=== PATIENT | female | born 1980 ===

== ENCOUNTER 2023-07-25 09:16 | Outpatient (CLI) | payer OTHER, SELFPAY | END 2023-07-25 09:17 | disposition home or self-care (01) | LOC: NFLDREF 08-01 02:45 | PROVIDERS: PCP Physician Assistant Medical; Referring Provider Physician Assistant Medical; Visit Provider Physician Assistant Medical | DX: R30.0 Dysuria (principal); N39.0 Urinary tract infection, site not specified; N30.00 Acute cystitis without hematuria | CPT/HCPCS: 87086 ==

== ENCOUNTER 2024-01-07 14:13 | Outpatient (CLI) | payer OTHER, SELFPAY ==
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
--- OUTSIDE RECORDS SUMMARY | 2024-01-10 11:18 | XMS_ITS | Clinical Summary ---
Author Name Unknown Organization [email or web address] Address [place], [place] [address] Care Team Providers Care Guitar Technician Name Role Phone [facility] Primary Care Provider [phone] Allergies Active Allergy Reactions Criticality Noted Date Comments Latex *Unknown 12/12/2010 PN: Converted from Latex Sensitivity Flag Nickel Itching Medium 12/17/2017 Tree And Shrub Pollen Other - Describe In Comment Field,Runny Nose 11/14/2020 Tree Pollen-Red Maple Other - Describe In Comment Field,Runny Nose 11/14/2020 Medications Medication Sig Dispensed Refills Start Date End Date Status MEDICATION ORDER COMPOSER anti-inflammatory two tabs by mouth daily 0 Active cetirizine (ZYRTEC) 10 mg tablet Take 10 mg by mouth. Acti ve cholecalciferol (VITAMIN D3) 1,000 unit tablet Take 5,000 units by mouth. Active TURMERIC ORAL Take 2 Tablets by mouth once daily. Active escitalopram oxalate (LEXAPRO) 10 mg tablet Active escitalopram oxalate (LEXAPRO) 20 mg tablet 08/07/2021 Active Magnesium Oxide 500 mg tab Take 500 mg by mouth. Active mupirocin (BACTROBAN OINTMENT) ointment 04/22/2021 Active propranolol ER (INDERAL LA) 60 mg Cs24 Sustained-Release capsule 06/28/2021 Active pyridoxine, vitamin B6, (VITAMIN B6) 100 mg tablet Take 200 mg by mouth. Active HYDROcodone-acetam inophen (NORCO) 5-325 mg per tabletIndications: Cellulitis, face Take 1 Tablet by mouth every 6 hours if needed for Pain. Max acetaminophen dose: 4000 mg in 24 hrs. 5 Tablet 09/21/2021 Active ibuprofen (ADVIL; MOTRIN) 200 mg cap Take by mouth. Ac tive metFORMIN (GLUCOPHAGE XR) 500 mg Extended-Release tablet 04/05/2022 Active naproxen sodium 220 mg cap as needed Active hydrOXYzine HCL (ATARAX) 25 mg tabletIndications: Migraine without status migrainosus, not intractable, unspecified migraine type Take 1 Tablet (25 mg) by mouth every 6 hours if needed (for feeling irritable). 25 Tablet 04/15/2022 Active LORazepam (ATIVAN) 0.5 mg tabIndications:Ron markie without status migrainosus, not intractable, unspecified migraine type Take 1 tablet by mouth twice daily as needed for nerve relaxing careful of sedation 5 Tablet 04/15/2022 Active topiramate (TOPAMAX) 25 mg tablet Take 50 mg by mouth two times daily. 02/18/2023 Active Family History Medical History Relation Name Comments Hypertension Father Relation Name Status Comments Father Alive Mother Alive Social History Tobacco Use Types Packs/Day Years Used Date Smoking Tobacco: Never Smokeless Tobacco: Never Alcohol Use Standard Drinks/Week Comments Yes 2 (1 standard drink = 0.6 oz pur e alcohol) social Social Connections Answer Date Recorded Frequency of Communication with Friends and Fami ly Not on file 02/08/2023 Sex and Gender Information Value Date Recorded Sex Assigned at Not on file Gender Identity Not on file Sexual Orientation Not on file Obstetrics History Para Term AB IAB SAB Ectopic Multiple Livin g Live Births 1 Date Outcome GA Total Labor Labor/2nd/3rd Weight Sex Delivery Anes PTL Judy A1 A5 Name Cl in Last Filed Vital Signs Vital Sign Reading Time Taken Comments Blood Pressure 102/60 02/08/2023 10:56 AM CDT Pulse 71 02/08/2023 10:56 AM CDT Temperature 36.9 ??C (98.5 ??F) 04/15/2022 12:36 PM C DT Respiratory Rate 16 02/08/2023 10:56 AM CDT Oxygen Saturation 99% 02/08/2023 10:56 AM CDT Inhaled Oxygen Concentration - - Weight 86.2 kg (190 lb) 02/08/2023 10:56 AM CDT Height 172.7 cm (5' 8) 02/08/2023 10:56 AM CDT Body Mass Index 28.89 02/08/2023 10:56 AM CDT Plan of Treatment Health Maintenance Due Date Last Done Comments Tdap 1991 Depression screening for age 12+ 1992 HIV for age 15-65 1995 Hepatitis C screening for ag e 18-79 1998 Tetanus booster 2000 Pap test for age 21-65 2001 COVID-19 vaccine series ( season) 2023 BMI (ht and wt on same day) for age 18+ 02/09/2024 02/08/2023, 09/21/2021 Influenza for age 9-49 05/10/2024 Pneumococcal series for age 6-64 Aged Out No longer eligible b ased on patient's age to complete this topic Care Teams Guitar Technician Relationship Specialty Start Date End Date [address] [place] [address] PCP - General 04/15/22
--- OUTSIDE RECORDS SUMMARY | 2024-01-10 11:18 | XMS_ITS | Clinical Summary ---
Author Name Unknown Organization [employer] Address [address] [place] [address] Care Team Providers Care Tailor Women'S Garment Alteration Name Role Phone Pediatrics, [facility] Primary Care Provider [phone] Allergies Active Allergy Reactions Criticality Noted Date [...] Name Administration Dates Next Due Td,adult,historic,unspecified 05/30/1998 Family History Medical History Relation Comments Diabetes Father Hypertension Father Cancer Maternal Grandfather lung cancer Diabetes Maternal Uncle No Known Problems Mother Hypertension Paternal Grandfather Hypertension Paternal Grandmother Relation Status Comments Father Alive Maternal Grandfather Maternal Uncle Mother Alive Paternal Grandfather Paternal Grandmother Social History Tobacco Use Types Packs/Day Years [...] Comments Blood Pressure 130/75 07/18/2022 9:25 PM ACCOUNT UNDERWRITER Pulse 66 07/18/2022 9:25 PM ACCOUNT UNDERWRITER Temperature 36.5 ??C (97.7 ??F) 07/18/2022 4:46 PM CS T Respiratory Rate 16 07/18/2022 9:25 PM ACCOUNT UNDERWRITER Oxygen Saturation 99% 07/18/2022 9:25 PM ACCOUNT UNDERWRITER Inhaled Oxygen Concentration - - Weight 88.5 kg (195 lb) 07/18/2022 4:46 PM ACCOUNT UNDERWRITER Height 172.7 cm (5' 8) 07/18/2022 4:46 PM ACCOUNT UNDERWRITER Body Mass Index 29.65 07/18/2022 4:46 PM ACCOUNT UNDERWRITER Plan of Treatment Health Maintenance Due Date Last Done Comments ADVANCE CARE PLANNING 1980 ANNUAL REVIEW OF HM ORDERS 1980 DEPRESSION ACTION PLAN 1980 MAMMO SCREENING 1980 PHQ-9 1980 HIV SCREENING 1995 HEPATITIS C SCREENING 1998 DTAP/TDAP/TD IMMUNIZATION (2 - Tdap) 05/31/1998 05/30/1998, 05/30/1998 HEPATITIS B IMMUNIZATION (1 of 3 - 19+ 3-dose series) 1999 YEARLY PREVENTIVE VISIT 07/30/2018 07/30/20 17, 07/30/2017, 03/26/2016, Additional history exists HPV TEST 03/26/2021 03/26/2016, 03/26/2016 LIPID 03/26/2021 03/26/2016, 07/02/2014 PAP 03/26/2021 03/26/2016 COVID-19 Vaccine (1 - 2023-24 season) 2023 INFLUENZA VACCINE (#1) 2023 GLUCOSE 07/18/2025 07/18/2022, 12/08, 12/07/2018, Additional history exists HPV IMMUNIZATION Aged Out No longer e ligible based on patient's age to complete this topic IPV IMMUNIZATION Aged Out No longer e ligible based on patient's age to complete this topic MENINGITIS IMMUNIZATION Aged Out No l onger eligible based on patient's age to complete this topic Pneumococcal Vaccine: Pediatrics (0 to 5 Years) and At-Risk Patients (6 to 64 Years) Aged Out No longer eligible based on patient's age to complete this topic RSV MONOCLONAL ANTIBODY Aged Out No l onger eligible based on patient's age to complete this topic Procedures Procedure Name Priority Date/Time Associated Diagnosis Comments BASIC METABOLIC PANEL STAT 07/18/2022 5:27 PM ACCOUNT UNDERWRITER GYNECOLOGIC CYTOLOGY Routine 03/26/2016 9:38 AM CDT HPV HIGH RISK TYPES DNA CERVICAL Routine 03/26/2016 9:38 AM CDT LIPID PROFILE Routine 03/26/2016 9:37 AM CDT from Last 3 Months or Most Recently Relevant to Health Maintenance Results * Basic metabolic panel (07/18/2022 5:27 PM ACCOUNT UNDERWRITER) Sodium 138 136 - 145 mmol/L 07/18/2022 5:55 PM [facility] Potassium 4.4 3.5 - 5.0 mmol/L 07/18/2022 5:55 PM [facility] Chloride 105 98 - 107 mmol/L 07/18/2022 5:55 PM [facility] Carbon Dioxide (CO2) 23 22 - 31 mmol/L 07/18/2022 5:55 PM [facility] Anion Gap 10 5 - 18 mmol/L 07/18/2022 5:55 PM [facility] Urea Nitrogen 12 8 - 22 mg/dL 07/18/2022 5:55 PM [facility] Creatinine 0.74 0.60 - 1.10 mg/dL 07/18/2022 5:55 PM [facility] Calcium 9.2 8.5 - 10.5 mg/dL 07/18/2022 5:55 PM [facility] Glucose 102 70 - 125 mg/dL 07/18/2022 5:55 PM [facility] GFR Estimate >90 >60 mL/min/1.7 3m2 07/18/2022 5:55 PM [facility] Comment:Effective August 102020 eGFRcr in adults is calculated using the 2020 CKD-EPI creatinine equation which includes age and gender (Josh et al., NEJM, DOI: 10.1056/BCVIwf4802216) Blood STRUCTURE OF LEFT UPPER LIMB / Unknown Venipuncture / Unknown 07/18/2022 5:27 PM ACCOUNT UNDERWRITER 07/18/2022 5:30 PM [facility] Markie Raphael MD LAB - BLOOD ORDERABL ES Performing Organization Address City/State/[facility] Co de Phone Number [facility] [address] [facility] [address] [phone] * Gynecologic Cytology (PAP Smear) (03/26/2016 9:38 AM CDT) Case Report Gynecologic Cytology Report ? Case: [id number] ? Authorizing Provider: ??Gisela Bourne CNP ? Collected: ? 03/26/2016937 ? Ordering Location: ? [facility] Medicine/OB Received: ?03/26/2016937 ? First Screen: ?Jackie Jacobs, [place] ? (ASCP) ? Rescreen: ?SHAWN Guido ? [...] CDT 03/27/2016 9:23 AM CDT Gisela Bourne BINDING CEMENTER [employer] TERRITORY SALES EXECUTIVE RODRIGO CULP AP * HPV High Risk Types DNA Cervical (03/26/2016 9:38 AM CDT) Interpretation No HPV Type(s) Detected No HPV Type(s) Detected, No High Risk HPV Type(s) Detected, DNA Quantity Not Sufficient 03/29/2016 1:10 PM CDT Sales And Marketing Director Jarad Nash MD, [facility] 03/29/2016 1:10 PM CDT Comment: Testing was performed at [facility], [address] [place] [address], with final verification at the indicated laboratory. ??Interpretation was performed at [facility] [address] [place] [address]. Specimen of unknown material (specimen) 03/26/2016 9:38 [...] this laboratory-developed test (LDT) were determined by [facility] pursuant to Clinical Laboratory Improvement Amendments (CLIA 88) requirements. ??It has not been cleared or approved by the U.S. Food and Drug Administration (FDA). ??The FDA has determined that such clearance or approval is not a requirement prior to use for clinical purposes. Gisela Bourne APRN TERRITORY SALES EXECUTIVE LAB - BLOOD ORDER DOT * Lipid [...] AM CDT 03/26/2016 5:38 PM CDT Gisela Sandhya Bourne BINDING CEMENTER [employer] TERRITORY SALES EXECUTIVE LAB - BLOOD ORDER DOT from Last 3 Months or Most Recently Relevant to Health Maintenance Care Teams Tailor Women'S Garment Alteration Relationship Specialty Start Date End Date Pediatrics, [facility] [address] [place] [address] [place] [address] PCP - General 07/18/22
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
--- OUTSIDE RECORDS SUMMARY | 2024-01-10 11:19 | XMS_ITS | Encounter Summary ---
Author Name Unknown Organization [facility] Address [address] [address] Care Team Providers Care Director Of Nurses Registry Name Role Phone Gisela Bourne APRN, CNP Primary Care Provider + Encounter Details Date Type Department Care Team (Late st Contact Info) Description 12/17/2017 Consent for Procedure/Treatme nt [facility] INFORMED CONSENT RECORD Social History Tobacco Use Types Packs/Day Years Used Date Smoking Tobacco: Never Smokeless Tobacco: Never Alcohol Use Standard Drinks/Week Comments No 0 (1 standard drink = 0.6 oz pur e alcohol) Sex and Gender Information Value Date Recorded Sex Assigned at Not on file Gender Identity Not on file Sexual Orientation Not on file documented as of this encounter Plan of Treatment Not on file documented as of this encounter Visit Diagnoses Not on filedocumented in this encounter Care Teams Director Of Nurses Registry Relationship Specialty Start Date End Date Gisela Bourne APRN, CNP [address] [facility] [address] [place] [address] PCP - General Nurse Practitioner 12/25/17 documented as of this encounter
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
--- OUTSIDE RECORDS SUMMARY | 2024-01-10 11:19 | XMS_ITS | Continuity of Care Document ---
Author Name Unknown Organization [facility] enter Address [address] [place] [phone] Phone Care Team Providers Care Sales Operations Coordinator Name Role Phone [facility] Unavailable Unava ilable Procedures Procedure Date N BLOCK, OTHER PERIPHERAL N BLOCK, OTHER PERIPHERAL Advance Directives Directive Yes / No Effective Date File Name No Information Encounters Encounter Description Practice Location Reason(s) For Visit Diagnoses Date Provider Providers Copied on Encounter [facility], [address] [place] [address], [id number], [place] tel:[phone] [facility] No Information [facility]. [address] [place] [address], [id number], . tel:[phone] Referring Provider: Davy Mcdonald, [address] [place], [address] . tel:[phone] Family History Family Member Type Diagnosis Age At Onset No Information Payers Payer name Insurance type Covered alliance party ID Ashok huertas(s) Leyda CI [id number] Social History Type Description Quantity Date Captured Comments Sex Female Smoking Status No Information Chief Complaint And Reason For Visit No Information Reason For Referral Reason For Referral No Information History Of Present Illness Encounter Date Complaint History Of Prese nt Illness No Information Functional Status Date Functional Assessmen t No Information Instructions Date Instruction Additional Infor mation No Information Assessments Type Assessment Date No Information Patient Care Teams Name Effective Dates (start - stop) Status Members No Information
--- OUTSIDE RECORDS SUMMARY | 2024-01-10 11:19 | XMS_ITS | Patient Health Record ---
Author Name Unknown Organization [facility] Address [address] [place] [address] [place] [address] Support Name Relationship Address Phone DEVEN JAMES Guarantor Unknown Allergies Allergen (clinical drug ingredient) Drug/Non Drug Allergy documented on EMR Reaction Allergy Type Onset Date Status seasonal (uncoded) Unknown Allergy A ctive Reason For Referral No Information Medications Medication SIG (Take, Route, Frequency, Duration) Notes Start Date End Date Status Escitalopram Oxalate 20 MG 1 tablet Orally Once a day for 90 day(s) Active Escitalopram Oxalate 10 MG 1 tablet Orally Once a day for 90 day(s) Active Magnesium Active CBD [place] oil Active Triamcinolone Acetonide 0.1 % 1 application Externally Twice a day for 14 days 06/20/2020 Not-Taking Mupirocin 2 % 1 application Externally Three times a day for 5 day(s) Active Probiotic Active predniSONE 5 MG (21) as directed Orally for shou lder pain Not-Taking HYDROcodone-Acetamino phen for jaw pain Not-Taking Escitalopram Oxalate 20 MG TAKE 1 TABLET BY MOUTH EVERY DAY FOR 30 DAYS for 30 20 with the 10 Active Gabapentin Not-Takin g ZyrTEC 10mg PRN Active Vitamin D 5,000 IU Active Vitamin B12 Active Problems Problem Type SNOMED Code ICD Code Onset Dates Problem Status W/U Status Risk Notes Problem Anxiety (00254363) Anxiety (F41.9) Active confi rmed Problem Depressive disorder (disorder) (69587556) Depression, unspecified depression type (F32.9) Active confirmed Problem Vesicular eczema of hands and/or feet (292869476) 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) Active confirmed Problem Mixed anxiety and depressive disorder (761660206) Depression with anxiety (F41.8) Active confirmed Problem 2316529641665839 Disorder of bot h eustachian tubes (H69.93) Active confirmed Problem 99064106 Sinusitis, unspecified chronicity, unspecified location (J32.9) Active confirmed Problem 57039918 Temporomandibula r disorder (M26.609) Active confirmed Plan Of Treatment Pending Test Test Name Order Date PHQ-9 and/or LILIANA 04/22/2021 Future Test Test Name Order Date Genomind 12/13/2021 Insurance Providers Payer Name Payer Address Payer Phone Subscriber Number Group Number Insured Name Patient Relationship to Insured Coverage Start Date Coverage End Date [employer] [place] [employer] [address] [place] [phone] [id number] DEVEN BOOTHE Self - patient is the insured Medical (General) History Medical History History ICD Code Depression and anxiety PCOS
--- OUTSIDE RECORDS SUMMARY | 2024-01-10 11:19 | XMS_ITS | Encounter Summary ---
Author Name Unknown Organization [facility] Address [address] [facility] [place] [address] Care Team Providers Care Satellite Television Installer Name Role Phone No Ref-Primary, Physician Primary Care Provider Pediatrics, [facility] Primary Care Provider [phone] Encounter Details Date Type Department Care Team (Late st Contact Info) Description 12/20/2020 Documentation Only [facility] Emergency Dept [address] [place] [phone] Unknown, Provider Social History Tobacco Use Types Packs/Day Years Used Date Smoking Tobacco: Never Assessed Sex and Gender Information Value Date Recorded Sex Assigned at Not on file Gender Identity Not on file Sexual Orientation Not on file COVID-19 Exposure Response Date Recorded In the last month, have you been in contact with someone who was confirmed or suspected to have Coronavirus / COVID-19? Yes 12/19/2020 9:27 PM CDT documented as of this encounter Plan of Treatment Not on file documented as of this encounter Visit Diagnoses Not on filedocumented in this encounter Care Teams Satellite Television Installer Relationship Specialty Start Date End Date No Ref-Primary, Physician PCP - General 12/19/20 07/17/22 Pediatrics, [address] [id number] PCP - General 07/18/22 documented as of this encounter
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
--- OUTSIDE RECORDS SUMMARY | 2024-01-10 11:19 | XMS_ITS | Encounter Summary ---
Author Name Unknown Organization [facility] Address [address] [place] [address] Care Team Providers Care Lactation Specialist Name Role Phone No Ref-Primary, Physician Primary Care Provider Gisela Bourne APRN [facility] Primary Care Provider [phone] No Ref-Primary, Physician Primary Care Provider Gisela Bourne APRN [facility] Primary Care Provider [phone] [facility], [facility] Primary Care Provider [phone] Reason for Referral * - Closed Specialty Diagnoses / Procedures Referred By Claudia jasso Referred To Contact Diagnoses related condition, antepartum Karlene Shi CNM [address] [place] [address] Referral ID Status Reason Start Date Expiration Date Visits Re quested Visits Authorized [id number] Closed 06/19/2018 06/19/2019 1 1 Comments Abnormal Genetic Testing, high risk, Triploidy, Trisomy 18 or Trisomy 13 * - Closed Specialty Diagnoses / Procedures Referred By Claudia jasso Referred To Contact Diagnoses related condition, antepartum Karlene Shi CNM [address] [place] [address] Referral ID Status Reason Start Date Expiration Date Visits Re quested Visits Authorized [id number] Closed 06/19/2018 06/19/2019 1 1 Question Answer MFM Location [facility] 12/16/2018 Ultrasound Complete US (14-17.6 weeks GA) US PROC NONE MFM Issue Abnormal Genetic Screening(details in Comments)*MUST request Genetic Counseling - Abnormal Genetic Testing, high risk, Triploidy, Trisomy 18 or Trisomy 13 MFM Consultation (unrelated to Ultrasound findings) No Genetic Counseling Consultation: Yes - Abnormal Genetic Testing, high risk, Triploidy, Trisomy 18 or Trisomy 13 fax Karlene Shi, [facility], Comments There is no height or weight on file to calculate BMI. >> Patient may proceed with recommendations for further testing as directed by the Maternal Medicine Specialist >> >> If requesting Echo: MFM will determine appropriate location for exam due to indication. >> If requesting Lung Maturity Amnio: If results indicate lung maturity, induction or C/S is recommended within 36 hours. Please schedule accordingly. Dear Patient: Please be aware that coverage of these services is subject to the terms and limitations of your health insurance plan. Call member services at your health plan with any benefit or coverage questions. Please bring the following to your appointment: >> Any x-rays, CTs or MRIs which have been performed. Contact the facility where they were done to arrange for picker operator prior to your scheduled appointment. Any new CT, MRI or other procedures ordered by your specialist must be performed at a [facility] facility or coordinated by your clinic's referral office. >> List of current medications >> This referral request >> Any documents/labs given to you for this referral Encounter Details Date Type Department Care Team (Late st Contact Info) Description 06/19/2018 Orders Only [facility] [address] [address] Karlene Shi CNM [address] [place] [address] related condition, antepartum (Primary Dx) Social History Tobacco Use Types Packs/Day Years Used Date Smoking Tobacco: Never Assessed Sex and Gender Information Value Date Recorded Sex Assigned at Not on file Gender Identity Not on file Sexual Orientation Not on file documented as of this encounter Plan of Treatment Scheduled Referrals Name Type Priority Associated Diagnoses Orde r Schedule [facility] REFERRAL- Referral Routine related condition, antepartum Ordered: 06/19/2018 MFM Genetic Counseling Referral Routine related condition, antepartum 1 Occurrences starting 06/19/2018 until 06/20/2019 documented as of this encounter Visit Diagnoses Diagnosis related condition, antepartum- Primary documented in this encounter Care Teams Lactation Specialist Relationship Specialty Start Date End Date No Ref-Primary, Physician PCP - General 07/14/18 09/21/18 Gisela Bourne, [facility] [employer] PCP - General Nurse Practitioner 09/22/18 12/18/20 No Ref-Primary, Physician PCP - General 12/19/20 07/17/22 Gisela Bourne [employer] [address] [id number] PCP - General 05/28/08 07/13/18 Pediatrics, [address] [place] [id number] PCP - General 07/18/22 documented as of this encounter
== END 2024-01-07 14:14 | disposition home or self-care (01) ==
LOC: NFLDREF 01-10 11:16
PROVIDERS: PCP Physician Assistant Medical; Referring Provider Physician Assistant Medical; Visit Provider Physician Assistant Medical
DX: N30.00 Acute cystitis without hematuria (principal)
CPT/HCPCS: 87086